=== PATIENT | female | born 1935 | race Caucasian/White ===

== ENCOUNTER 2017-08-24 12:30 | Inpatient (IN) | payer OTHER, MEDICARE ==
[~2017-08-24] VITALS: Ht 162.6 cm; Wt 92.0 kg
[2017-08-24] VITALS (11 sets, daily range): BP systolic 107–129; BP diastolic 53–66; PULSE 99–122; RESP 18–22; TEMP 97.5–100.6; O2SAT 93–96
[~2017-08-24 12:30] MED LIST: ASPI81CH6 CHEW; ATOR20TA15 PO; CEPH-459 PO; CLOB0.055 TOPICAL; CRANBERRY CAPSULE; CYAN100025 SL; DILT120C50 PO; DIPH25CA PO; DOCU50CA5; ESTR42.5V VAGINAL; ESTRIOL; FISH500C; HYDR25TA5 PO; MAPA500T13 PO; MELA5 PO; METO100T PO; NITR50CA27 PO; OMEP20TA93 PO; OSTETAB3 PO; TRIA0.022 TOPICAL; VITA1000 PO; [UNRECOGNIZED DRUG - OTHER]
--- NOTE | 2017-08-24 13:01 | RADRPT ---
EXAM DATE/TIME: 08/24/2017 12:45 [facility] COMPARISON: No previous studies available for comparison. INDICATIONS : Weakness. Cough. MEDICAL HISTORY : Hypertension. Osteoarthritis. SURGICAL HISTORY : Hysterectomy. Tonsillectomy. ENCOUNTER: Initial ACUITY: 1 day PAIN SCORE: 0/10 LOCATION: chest FINDINGS: A single view of the chest demonstrates elevation of the left hemidiaphragm with atelectatic changes in the left base. There is a loop of air-filled bowel subjacent to the same diaphragm without obstruc tion. Lungs are otherwise clear. Heart size is upper limits of normal and well compensated. Mild levoscoliosis of the dorsal spine wit h associated degenerative changes. Mild degenerative changes in both shoulders. Rounded calcific dens ities projecting over the left scapula may represent free bodies are osteochondromata. CONCLUSION: 1. Elevation left hemidiaphragm and minimal atelectatic changes at the left base. Lungs are otherwise clear. 2. Heart size is upper limits of normal and well compensated Herbert Murguia MD on August 24, 2017 at 12:54 Board Certified Radiologist. This report was verified electronically.
[2017-08-24 13:23] LABS: BASOPHIL # 0.3 TH/MM3 (0-0.2); BASOPHIL % 1.6 % (0.0-2.0); EOSINOPHIL % 0.1 % (0.0-4.0); HEMATOCRIT 45.7 % (35.0-46.0); HEMOGLOBIN 15.4 GM/DL (11.6-15.3); LYMPH % 11.9 % (9.0-44.0); MEAN CELL VOLUME 97.1 FL (80.0-100.0); MEAN CORPUSCULAR HEMOGLOBIN 32.8 PG (27.0-34.0); MEAN CORPUSCULAR HGB CONC 33.8 % (32.0-36.0); MEAN PLATELET VOLUME 8.4 FL (7.0-11.0); MONO % 10.6 % (0.0-8.0); MONOCYTE # 1.8 TH/MM3 (0-0.9); NEUT % 75.8 % (16.0-70.0); PLATELET COUNT 258 TH/MM3 (150-450); RED CELL DISTRIBUTION WIDTH 12.7 % (11.6-17.2); WHITE BLOOD COUNT 17.1 TH/MM3 (4.0-11.0)
[2017-08-24 13:28] LABS: CHLORIDE 94 MEQ/L (98-107); SODIUM (NA) 132 MEQ/L (136-145)
[2017-08-24 13:31] LABS: BILIRUBIN, URINE NEG (NEG); BLOOD, URINE MOD (NEG); GLUCOSE,URINE NEG (NEG); KETONE, URINE NEG (NEG); NITRITE,URINE NEG (NEG); PH, URINE 5.5 (5.0-8.5); URINE LEUKOCYTE ESTERASE NEG (NEG)
[2017-08-24 13:31] LABS: ALBUMIN 2.9 GM/DL (3.4-5.0); BICARBONATE 28.2 MEQ/L (21.0-32.0)
[2017-08-24 13:32] LABS: BLOOD UREA NITROGEN 20 MG/DL (7-18); GLUCOSE,RANDOM 189 MG/DL (74-106); INTERNATIONAL NORMALIZED RATIO 1.1 RATIO; MAGNESIUM 1.9 MG/DL (1.5-2.5)
[2017-08-24 13:34] LABS: ALT (GPT) 18 U/L (10-53)
--- NOTE | 2017-08-24 13:34 | RADRPT ---
EXAM DATE/TIME: 08/24/2017 13:18 [facility] COMPARISON: No previous studies available for comparison. INDICATIONS : General weakness. Altered mental status. RADIATION DOSE: 60.64 CTDIvol (mGy) MEDICAL HISTORY : Hypertension. SURGICAL HISTORY : Hysterectomy. ENCOUNTER: Initial ACUITY: 3 days PAIN SCALE: 0/10 LOCATION: cranial TECHNIQUE: Multiple contiguous axial images were obtained of the head. Using automated exposure control and adj ustment of the mA and/or kV according to patient size, radiation dose was kept as low as reasonably a chievable to obtain optimal diagnostic quality images. DICOM format image data is available electro nically for review and comparison. FINDINGS: CEREBRUM: The ventricles are normal for age. No evidence of midline shift, mass lesion, hemorrhage or acute in farction. Scattered areas of diminished attenuation in the deep white matter tracts. No extra-axial fluid collections are seen. POSTERIOR FOSSA: The cerebellum and brainstem are intact. The 4th ventricle is midline. The cerebellopontine angle i s unremarkable. EXTRACRANIAL: The visualized portion of the orbits is intact. SKULL: The calvaria is intact. No evidence of skull fracture. CONCLUSION: 1. Chronic changes with scattered areas of small vessel ischemic dilation in the deep white matter tr acts. 2. Nothing acute Herbert Murguia MD on August 24, 2017 at 13:29 Board Certified Radiologist. This report was verified electronically.
[2017-08-24 13:35] LABS: AST (GOT) 21 U/L (15-37); GLOMERULAR FILTRATION RATE 53 ML/MIN (>89)
[2017-08-24 13:36] LABS: TOTAL BILIRUBIN ADULT 1.5 MG/DL (0.2-1.0); TOTAL PROTEIN 7.9 GM/DL (6.4-8.2)
[2017-08-24 13:38] LABS: ALKALINE PHOSPHATASE 82 U/L (45-117)
[2017-08-24 13:40] LABS: TROPONIN I LESS THAN 0.02 NG/ML (0.02-0.05)
[2017-08-24 13:45] LABS: URINE COLOR YELLOW (YELLW/STRAW)
[2017-08-24 13:46] LABS: RBC, URINE 0-3 /hpf (0-3); SQUAMOUS EPITHELIAL CELL URINE 0-5 /hpf (0-5)
[2017-08-24 13:47] LABS: AMORPHOUS SEDIMENT, URINE FEW
[2017-08-24] MEDS ORDERED: SODIUM CHLOR 0.9% 1000 ML INJ 1,000 ML IV SCH (13:58)
--- NOTE | 2017-08-24 15:55 | PD ---
HPI Chief Complaint: General Weakness Time Seen by Provider: 12:33 Travel History International Travel<30 days: No Contact w/Intl Traveler<30days: No Traveled to known affect area: No History of Present Illness HPI This is an 82-year-old female who presents via EMS for general weakness. 2 days ago, she had a skin cancer removed from the left side of her face. Her son states that since then, she has been diffusely weak. She has not left her recliner. She has had decreased oral intake. No fever, chills, cough, congestion. Patient complains of chronic pain in her feet and knees. She has mildly increased bilateral lower extremity symmetric edema after sitting in her chair for 2 days. No associated chest pain, shortness of breath, nausea, vomiting. Symptoms are moderate in severity. Onset gradual. No known alleviating or aggravating factors. PFSH Past Medical History Arthritis: Yes Cancer: Yes (SKIN) High Cholesterol: Yes Diminished Hearing: No Hypertension: Yes Tetanus Vaccination: > 5 Years Influenza Vaccination: Yes Past Surgical History Hysterectomy: Yes Tonsillectomy: Yes Social History Alcohol Use: No Tobacco Use: No Allergies-Medications (Allergen,Severity, Reaction): Coded Allergies: No Known Allergies (Verified Adverse Reaction, Unknown, 08/24/17) Reported Meds & Prescriptions Reported Meds & Active Scripts Active Keflex (Cephalexin) 250 Mg Cap 250 Mg PO DAILY PRN Reported Osteo Bi-Flex Regular Strength (Glucosamine-Chondroitin) 250-200 Tab 1 Tab PO BID Clobetasol Topical (Clobetasol Propionate) Unknown Strength Cream Unknown Dose TOPICAL BID [Estriol ] Unknown Strength Unknown Dose Triamcinolone Topical Unknown Strength Oint Unknown Dose TOPICAL BID Estrace Vaginal (Estradiol) 0.01% Cream 1 Gm VAGINAL HS Mapap Extra Strength (Acetaminophen) 500 Mg Tab 500 Mg PO DAILY PRN Melatonin 5 Mg Tab 5 Mg PO HS Vitamin D-1000 (Cholecalciferol) 1,000 Unit Tab 1,000 Units PO DAILY Diphenhydramine (Diphenhydramine HCl) 25 Mg Cap 25 Mg PO HS PRN Aspirin Low Dose (Aspirin) 81 Mg Chew 81 Mg CHEW DAILY B-12 (Cyanocobalamin) Unknown Strength Subl Unknown Dose SL DAILY Stool Softener (Docusate Sodium) Unknown Strength Capsule Unknown Dose Fish Oil ([place]-3 Fatty Acids) Unknown Strength Cap Unknown Dose [Cranberry Capsule] Unknown Strength Unknown Dose Hydrochlorothiazide 25 Mg Tab 25 Mg PO DAILY Atorvastatin (Atorvastatin Calcium) 20 Mg Tab 20 Mg PO HS Omeprazole 20 Mg Tab 20 Mg PO DAILY Metoprolol Tartrate 100 Mg Tab 100 Mg PO BID Diltiazem CD 24 HR 120 Mg Caper 180 Mg PO DAILY Review of Systems Except as stated in HPI: all other systems reviewed are Neg Physical Exam Narrative GENERAL: Alert, well nourished, well appearing patient resting on the bed in no acute distress. Vital Signs reviewed SKIN: Focused skin assessment warm/dry. Surgical incision on left side of face and right upper chest with sutures in place. No surrounding erythema or increased warmth or drainage. HEAD: Atraumatic. Normocephalic. EYES: Pupils equal and round. No scleral icterus. No injection or drainage. ENT: No nasal bleeding or discharge. Mucous membranes pink and moist. NECK: Trachea midline. No JVD. Spontaneous, painless full range of motion with no meningismus CARDIOVASCULAR: Regular rate and rhythm. No murmur appreciated. Extremities warm and well perfused with bounding peripheral pulses RESPIRATORY: No accessory muscle use. Clear to auscultation. Breath sounds equal bilaterally. Breathing easily and speaking in full sentences GASTROINTESTINAL: Abdomen soft, non-tender, nondistended. Normal bowel sounds. No rigid, rebound, guarding MUSCULOSKELETAL: No obvious deformities. No clubbing. No cyanosis. Mild symmetric bilateral lower extremity edema. Compartments are soft NEUROLOGICAL: Awake and alert. No obvious cranial nerve deficits. Motor grossly within normal limits. Normal speech. Sensation intact. Data Data Last Documented VS Vital Signs Date Time Temp Pulse Resp B/P (MAP) Pulse Ox O2 Delivery O2 Flow Rate FiO2 08/24/17 16:45 100.6 117 18 126/63 (84) 95 Nasal Cannula 2.00 Orders Orders Electrocardiogram (08/24/17 12:33) Complete Blood Count With Diff (08/24/17 12:33) Comprehensive Metabolic Panel (08/24/17 12:33) Prothrombin Time / Inr (Pt) (08/24/17 12:33) Act Partial Throm Time (Ptt) (08/24/17 12:33) Lactic Acid Sepsis Protocol (08/24/17 12:33) Magnesium (Mg) (08/24/17 12:33) Ckmb (Isoenzyme) Profile (08/24/17 12:33) Troponin I (08/24/17 12:33) Urinalysis - C+S If Indicated (08/24/17 12:33) Influenzae A/B Antigen (08/24/17 12:33) Blood Culture (08/24/17 12:33) Chest, Single Ap (08/24/17 12:33) Ecg Monitoring (08/24/17 12:33) Iv Access Insert/Monitor (08/24/17 12:33) Oximetry (08/24/17 12:33) Ct Brain W/O Iv Contrast(Rout) (08/24/17 12:33) B-Type Natriuretic Peptide (08/24/17 12:33) CKMB (08/24/17 13:00) CKMB% (08/24/17 13:00) Sodium Chlor 0.9% 1000 Ml Inj (Ns 1000 M (08/24/17 13:58) Vancomycin Inj (Vancomycin Inj) (08/24/17 17:00) Piperacil-Tazo 4.5 Gm Premix (Zosyn 4.5 (08/24/17 17:00) Acetaminophen (Tylenol) (08/24/17 17:00) Admit Order (Ed Use Only) (08/24/17 17:19) Labs Laboratory Tests Test 08/24/17 12:50 08/24/17 13:00 08/24/17 16:10 Urine Collection Type CATH Urine Color YELLOW Urine Turbidity CLEAR Urine pH 5.5 Urine Specific [place] 1.020 Urine Protein TRACE mg/dL Urine Glucose (UA) NEG mg/dL Urine Ketones NEG mg/dL Urine Occult Blood MOD Urine Nitrite NEG Urine Bilirubin NEG Urine Leukocyte Esterase NEG Urine RBC 0-3 /hpf Urine Squamous Epithelial Cells 0-5 /hpf Urine Amorphous Sediment FEW Microscopic Urinalysis Comment CATH-CULT NOT IND White Blood Count 17.1 TH/MM3 Red Blood Count 4.70 MIL/MM3 Hemoglobin 15.4 GM/DL Hematocrit 45.7 % Mean Corpuscular Volume 97.1 FL Mean Corpuscular Hemoglobin 32.8 PG Mean Corpuscular Hemoglobin Concent 33.8 % Red Cell Distribution Width 12.7 % Platelet Count 258 TH/MM3 Mean Platelet Volume 8.4 FL Neutrophils (%) (Auto) 75.8 % Lymphocytes (%) (Auto) 11.9 % Monocytes (%) (Auto) 10.6 % Eosinophils (%) (Auto) 0.1 % Basophils (%) (Auto) 1.6 % Neutrophils # (Auto) 13.0 TH/MM3 Lymphocytes # (Auto) 2.0 TH/MM3 Monocytes # (Auto) 1.8 TH/MM3 Eosinophils # (Auto) 0.0 TH/MM3 Basophils # (Auto) 0.3 TH/MM3 CBC Comment AUTO DIFF Differential Comment AUTO DIFF CONFIRMED Platelet Estimate NORMAL Platelet Morphology Comment NORMAL Prothrombin Time 11.0 SEC Prothromb Time International Ratio 1.1 RATIO Activated Partial Thromboplast Time 29.7 SEC Blood Urea Nitrogen 20 MG/DL Creatinine 1.00 MG/DL Random Glucose 189 MG/DL Total Protein 7.9 GM/DL Albumin 2.9 GM/DL Calcium Level 9.0 MG/DL Magnesium Level 1.9 MG/DL Alkaline Phosphatase 82 U/L Aspartate Amino Transf (AST/SGOT) 21 U/L Alanine Aminotransferase (ALT/SGPT) 18 U/L Total Bilirubin 1.5 MG/DL Sodium Level 132 MEQ/L Potassium Level 3.3 MEQ/L Chloride Level 94 MEQ/L Carbon Dioxide Level 28.2 MEQ/L Anion Gap 10 MEQ/L Estimat Glomerular Filtration Rate 53 ML/MIN Lactic Acid Level 3.0 mmol/L 2.0 mmol/L Total Creatine Kinase 383 U/L Creatine Kinase MB 2.0 NG/ML Creatine Kinase MB % 0.5 % Troponin I LESS THAN 0.02 NG/ML B-Type Natriuretic Peptide 101 PG/ML MDM Medical Decision Making Medical Screen Exam Complete: Yes Emergency Medical Condition: Yes Medical Record Reviewed: Yes Interpretation(s) EKG shows sinus tachycardia with a rate of 103. No acute ST elevation Date/Time Source Procedure Growth Status 08/24/17 13:05 Blood Peripheral Aerobic Blood Culture Pending Received 08/24/17 13:05 Blood Peripheral Anaerobic Blood Culture Pending Received 08/24/17 13:00 Blood Peripheral Aerobic Blood Culture Pending Received 08/24/17 13:00 Blood Peripheral Anaerobic Blood Culture Pending Received 08/24/17 12:50 Nasal Washing Influenza Types A,B Antigen ([place]) - Final NEGATIVE FOR FLU A AND B ANTIGEN.... Complete Last [address] 08/24/17 1233 Signed Impressions: Service Date/Time: Thursday, August 24, 2017 13:18 - CONCLUSION: 1. Chronic changes with scattered areas of small vessel ischemic dilation in the deep white matter tracts. 2. Nothing acute Herbert Murguia MD Chest X-Ray 08/24/17 1233 Signed Impressions: Service Date/Time: Thursday, August 24, 2017 12:45 - CONCLUSION: 1. Elevation left hemidiaphragm and minimal atelectatic changes at the left base. Lungs are otherwise clear. 2. Heart size is upper limits of normal and well compensated Herbert Murguia MD Laboratory Tests Test 08/24/17 12:50 08/24/17 13:00 Urine Collection Type CATH Urine Color YELLOW Urine Turbidity CLEAR Urine pH 5.5 Urine Specific [place] 1.020 Urine Protein TRACE mg/dL Urine Glucose (UA) NEG mg/dL Urine Ketones NEG mg/dL Urine Occult Blood MOD Urine Nitrite NEG Urine Bilirubin NEG Urine Leukocyte Esterase NEG Urine RBC 0-3 /hpf Urine Squamous Epithelial Cells 0-5 /hpf Urine Amorphous Sediment FEW Microscopic Urinalysis Comment CATH-CULT NOT IND White Blood Count 17.1 TH/MM3 Red Blood Count 4.70 MIL/MM3 Hemoglobin 15.4 GM/DL Hematocrit 45.7 % Mean Corpuscular Volume 97.1 FL Mean Corpuscular Hemoglobin 32.8 PG Mean Corpuscular Hemoglobin Concent 33.8 % Red Cell Distribution Width 12.7 % Platelet Count 258 TH/MM3 Mean Platelet Volume 8.4 FL Neutrophils (%) (Auto) 75.8 % Lymphocytes (%) (Auto) 11.9 % Monocytes (%) (Auto) 10.6 % Eosinophils (%) (Auto) 0.1 % Basophils (%) (Auto) 1.6 % Neutrophils # (Auto) 13.0 TH/MM3 Lymphocytes # (Auto) 2.0 TH/MM3 Monocytes # (Auto) 1.8 TH/MM3 Eosinophils # (Auto) 0.0 TH/MM3 Basophils # (Auto) 0.3 TH/MM3 CBC Comment AUTO DIFF Differential Comment AUTO DIFF CONFIRMED Platelet Estimate NORMAL Platelet Morphology Comment NORMAL Prothrombin Time 11.0 SEC Prothromb Time International Ratio 1.1 RATIO Activated Partial Thromboplast Time 29.7 SEC Blood Urea Nitrogen 20 MG/DL Creatinine 1.00 MG/DL Random Glucose 189 MG/DL Total Protein 7.9 GM/DL Albumin 2.9 GM/DL Calcium Level 9.0 MG/DL Magnesium Level 1.9 MG/DL Alkaline Phosphatase 82 U/L Aspartate Amino Transf (AST/SGOT) 21 U/L Alanine Aminotransferase (ALT/SGPT) 18 U/L Total Bilirubin 1.5 MG/DL Sodium Level 132 MEQ/L Potassium Level 3.3 MEQ/L Chloride Level 94 MEQ/L Carbon Dioxide Level 28.2 MEQ/L Anion Gap 10 MEQ/L Estimat Glomerular Filtration Rate 53 ML/MIN Lactic Acid Level 3.0 mmol/L Total Creatine Kinase 383 U/L Creatine Kinase MB 2.0 NG/ML Creatine Kinase MB % 0.5 % Troponin I LESS THAN 0.02 NG/ML B-Type Natriuretic Peptide 101 PG/ML Differential Diagnosis Dehydration, deconditioning, UTI, electrolyte abnormality, renal failure, arthritis Narrative Course Patient was placed on a campus monitor. IV access was established. Labs, imaging were performed. The patient was given IV fluids as she appears grossly dehydrated. Despite the IV fluids, she is still too weak to ambulate. Patient developed fever in the emergency department. She does have elevated white blood cell count. No obvious source of infection has been identified in the emergency department. Patient has been given broad-spectrum IV antibiotics. Plan for admission for further evaluation and care. Diagnosis Primary Impression: Dehydration Additional Impression: Sepsis Qualified Codes: A41.9 - Sepsis, unspecified organism Admitting Information Admitting Physician Requests: Admit Neva Carlson MD Aug 24, 2017 15:55
[2017-08-24] MEDS ORDERED: ACETAMINOPHEN 325 MG TAB PO ONE (17:00)
[2017-08-24] MEDS ORDERED: PIPERACIL-TAZO 4.5 GM PREMIX 100 ML IV ONE (17:00)
[2017-08-24] MEDS ORDERED: VANCOMYCIN INJ 1,000 MG in SODIUM CHLOR 0.9% 250 ML INJ 250 ML IV ONE (17:00)
--- NOTE | 2017-08-24 18:43 | HHI.HP ---
HPI Service [facility] Hospitalists Primary Care Physician Olayinka Oreilly MD Admission Diagnosis Sepsis, Dehydration, General Weakness Diagnoses: (1) Systemic inflammatory response syndrome Diagnosis: Principal (2) Generalized weakness Diagnosis: Principal (3) Leukocytosis Diagnosis: Principal (4) Lactic acidosis Diagnosis: Principal (5) Hyponatremia Diagnosis: Principal (6) Hypokalemia Diagnosis: Principal Chief Complaint: Profound weakness Travel History International Travel<30 Days: No Contact w/Intl Traveler <30 Da: No Traveled to Known Affected Are: No Sepsis Criteria SIRS Criteria (2 or more): Heart rate over 90, WBC > 72285, < 4000 or > 10% bands Severe Sepsis (+one): Lactate >2 History of Present Illness 82-year-old female with known history of hypertension, hyperlipidemia , skin cancer who presented to hospital because of profound weakness. Patient indicates that she has been undergoing surgical excision from skin cancer. She had skin cancer removed from her right clavicle area 07/15/17 and then she proceeded to have significant cancer removed from her left lateral restoration area on 07/22/17. Since the last excision the patient went home and has had significant weakness, debility, lower extremity pain, decreased appetite. Subsequently patient had inability to ambulate or walk. He can't she was so weak and cannot walk she came to emergency department for evaluation. Patient had workup done in found to have signs of dehydration, workup was done to evaluate for any signs of infection, however no source has been identified thus far. Patient did meet criteria for systemic inflammatory response syndrome and is recommended by ER physician that the patient be admitted for further evaluation and management. Upon evaluating patient she does appear to be very weak. She denies any fever, chills, cough, congestion, chest pain, shortness of breath, difficulty breathing, abdominal pain, nausea, vomiting, diaphoresis. Review of Systems Constitutional: COMPLAINS OF: Fatigue Cardiovascular: COMPLAINS OF: Lower Extremity Edema Neurologic: COMPLAINS OF: Abnormal gait, Poor Balance Except as stated in HPI: all other systems reviewed are Neg Past Family Social History Past Medical History Hypertension Hyperlipidemia History skin cancer Arthritis Past Surgical History Hysterectomy Umbilical hernia repair Skin cancer removal Reported Medications Reported Meds & Active Scripts Active Keflex (Cephalexin) 250 Mg Cap 250 Mg PO DAILY PRN Reported Osteo Bi-Flex Regular Strength (Glucosamine-Chondroitin) 250-200 Tab 1 Tab PO BID Clobetasol Topical (Clobetasol Propionate) Unknown Strength Cream Unknown Dose TOPICAL BID [Estriol ] Unknown Strength Unknown Dose Triamcinolone Topical Unknown Strength Oint Unknown Dose TOPICAL BID Estrace Vaginal (Estradiol) 0.01% Cream 1 Gm VAGINAL HS Mapap Extra Strength (Acetaminophen) 500 Mg Tab 500 Mg PO DAILY PRN Melatonin 5 Mg Tab 5 Mg PO HS Vitamin D-1000 (Cholecalciferol) 1,000 Unit Tab 1,000 Units PO DAILY Diphenhydramine (Diphenhydramine HCl) 25 Mg Cap 25 Mg PO HS PRN Aspirin Low Dose (Aspirin) 81 Mg Chew 81 Mg CHEW DAILY B-12 (Cyanocobalamin) Unknown Strength Subl Unknown Dose SL DAILY Stool Softener (Docusate Sodium) Unknown Strength Capsule Unknown Dose Fish Oil ([place]-3 Fatty Acids) Unknown Strength Cap Unknown Dose [Cranberry Capsule] Unknown Strength Unknown Dose Hydrochlorothiazide 25 Mg Tab 25 Mg PO DAILY Atorvastatin (Atorvastatin Calcium) 20 Mg Tab 20 Mg PO HS Omeprazole 20 Mg Tab 20 Mg PO DAILY Metoprolol Tartrate 100 Mg Tab 100 Mg PO BID Diltiazem CD 24 HR 120 Mg Caper 180 Mg PO DAILY Allergies: Coded Allergies: No Known Allergies (Verified Adverse Reaction, Unknown, 08/24/17) Family History Reviewed is significant for father at age 51 from myocardial infarction , mother at 88 with Parkinson's Social History Patient does live at home with her son, she denies any tobacco, alcohol or illicit drugs Physical Exam Vital Signs Vital Signs Date Time Temp Pulse Resp B/P (MAP) Pulse Ox O2 Delivery O2 Flow Rate FiO2 08/24/17 18:14 120 20 114/60 (78) 94 Nasal Cannula 2.00 08/24/17 18:02 122 08/24/17 16:45 100.6 117 18 126/63 (84) 95 Nasal Cannula 2.00 08/24/17 16:10 101 18 119/60 (79) 94 Nasal Cannula 2.00 08/24/17 15:05 Nasal Cannula 2.00 08/24/17 15:05 99 18 129/66 (87) 96 Nasal Cannula 2.00 08/24/17 13:43 98.5 99 20 124/55 (78) 96 Nasal Cannula 2.00 08/24/17 13:13 98.2 103 22 109/62 (78) 93 08/24/17 12:50 Room Air Physical Exam GENERAL: Well-developed, well-nourished, in no acute distress. alert and orientated HEENT: Head is normocephalic without any lesions or masses noted. Facial features are symmetric. Eyes: Pupils equal round reactive to light. Extraocular muscles are intact. Conjunctivae were clear. Oropharyngeal: Pharynx without any erythema edema. Tongue is midline without deviation. Buccal mucosa is moist without any masses or lesions NECK: Supple without any masses. Trachea midline no deviation. No JVD, no bruits are appreciated CARDIAC: Regular rhythm, regular rate. S1/S2 are heard. No murmurs gallops or rubs. LUNGS: Clear to auscultation bilaterally. No wheeze, rhonchi or rales. No use of accessory muscles on inspiration or expiration. ABDOMEN: Soft, nontender. Nondistended. Bowel sounds heard in all 4 quadrants. No organomegaly or masses. Negative rebound, negative guarding EXTREMITIES: 2+ nonpitting edema noted bilateral lower extremities, pulses are equal bilaterally. No cyanosis or clubbing NEUROLOGY: Mood and affect appear appropriate. Cranial nerves II through XII grossly intact. Muscle strength 5/5 in upper and lower extremities bilaterally. Deep tendon reflexes are 2+ in upper and lower extremities bilaterally. SKIN: Patient does have healing incision with sutures over the right upper chest over the clavicle without any signs of infection. Patient does have incision on the left lateral restoration Laboratory Laboratory Tests Test 08/24/17 12:50 08/24/17 13:00 08/24/17 16:10 Urine Collection Type CATH Urine Color YELLOW Urine Turbidity CLEAR Urine pH 5.5 Urine Specific Lynd 1.020 Urine Protein TRACE Urine Glucose (UA) NEG Urine Ketones NEG Urine Occult Blood MOD Urine Nitrite NEG Urine Bilirubin NEG Urine Leukocyte Esterase NEG Urine RBC 0-3 Urine Squamous Epithelial Cells 0-5 Urine Amorphous Sediment FEW Microscopic Urinalysis Comment CATH-CULT NOT IND White Blood Count 17.1 Red Blood Count 4.70 Hemoglobin 15.4 Hematocrit 45.7 Mean Corpuscular Volume 97.1 Mean Corpuscular Hemoglobin 32.8 Mean Corpuscular Hemoglobin Concent 33.8 Red Cell Distribution Width 12.7 Platelet Count 258 Mean Platelet Volume 8.4 Neutrophils (%) (Auto) 75.8 Lymphocytes (%) (Auto) 11.9 Monocytes (%) (Auto) 10.6 Eosinophils (%) (Auto) 0.1 Basophils (%) (Auto) 1.6 Neutrophils # (Auto) 13.0 Lymphocytes # (Auto) 2.0 Monocytes # (Auto) 1.8 Eosinophils # (Auto) 0.0 Basophils # (Auto) 0.3 CBC Comment AUTO DIFF Differential Comment AUTO DIFF CONFIRMED Platelet Estimate NORMAL Platelet Morphology Comment NORMAL Prothrombin Time 11.0 Prothromb Time International Ratio 1.1 Activated Partial Thromboplast Time 29.7 Blood Urea Nitrogen 20 Creatinine 1.00 Random Glucose 189 Total Protein 7.9 Albumin 2.9 Calcium Level 9.0 Magnesium Level 1.9 Alkaline Phosphatase 82 Aspartate Amino Transf (AST/SGOT) 21 Alanine Aminotransferase (ALT/SGPT) 18 Total Bilirubin 1.5 Sodium Level 132 Potassium Level 3.3 Chloride Level 94 Carbon Dioxide Level 28.2 Anion Gap 10 Estimat Glomerular Filtration Rate 53 Lactic Acid Level 3.0 2.0 Total Creatine Kinase 383 Creatine Kinase MB 2.0 Creatine Kinase MB % 0.5 Troponin I LESS THAN 0.02 B-Type Natriuretic Peptide 101 Date/Time Source Procedure Growth Status 08/24/17 13:05 Blood Peripheral Aerobic Blood Culture Pending Received 08/24/17 13:05 Blood Peripheral Anaerobic Blood Culture Pending Received 08/24/17 12:50 Nasal Washing Influenza Types A,B Antigen (Y[place]SELIN) - Final NEGATIVE FOR FLU A AND B ANTIGEN.... Complete Result Diagram: 08/24/17 1300 08/24/17 1300 Imaging Last Impressions Head CT 08/24/17 1233 Signed Impressions: Service Date/Time: Thursday, August 24, 2017 13:18 - CONCLUSION: 1. Chronic changes with scattered areas of small vessel ischemic dilation in the deep white matter tracts. 2. Nothing acute Herbert Murguia MD Chest X-Ray 08/24/17 1233 Signed Impressions: Service Date/Time: Thursday, August 24, 2017 12:45 - CONCLUSION: 1. Elevation left hemidiaphragm and minimal atelectatic changes at the left base. Lungs are otherwise clear. 2. Heart size is upper limits of normal and well compensated Herbert Murguia MD Septic Shock Reassessment Septic shock perfusion: reassessment completed Caprini VTE Risk Assessment Caprini VTE Risk Assessment: Mod/High Risk (score >= 2) Caprini Risk Assessment Model Point Value = 1 Point Value = 2 Point Value = 3 Point Value = 5 Age 41-60 Minor surgery BMI > 25 kg/m2 Swollen legs Varicose veins or History of unexplained or recurrent spontaneous Oral contraceptives or hormone replacement Sepsis (< 1 month) Serious lung disease, including pneumonia (< 1 month) Abnormal pulmonary function Acute myocardial infarction Congestive heart failure (< 1 month) History of inflammatory bowel disease Medical patient at bed rest Age 61-74 Arthroscopic surgery Major open surgery (> 45 min) Laparoscopic surgery (> 45 min) Malignancy Confined to bed (> 72 hours) Immobilizing plaster cast Central venous access Age >= 75 History of VTE Family history of VTE Factor V Leiden Prothrombin [id number] Lupus anticoagulant Anticardiolipin antibodies Elevated serum homocysteine Heparin-induced thrombocytopenia Other congenital or acquired thrombophilia Stroke (< 1 month) Elective arthroplasty Hip, pelvis, or leg fracture Acute spinal cord injury (< 1 month) Prophylaxis Regimen Total Risk Factor Score Risk Level Prophylaxis Regimen 0-1 Low Early ambulation 2 Moderate Order ONE of the following: *Sequential Compression Device (SCD) *Heparin 5000 units SQ BID 3-4 Higher Order ONE of the following medications: *Heparin 5000 units SQ TID *Enoxaparin/Lovenox 40 mg SQ daily (WT < 150 kg, CrCl > 30 mL/min) *Enoxaparin/Lovenox 30 mg SQ daily (WT < 150 kg, CrCl > 10-29 mL/min) *Enoxaparin/Lovenox 30 mg SQ BID (WT < 150 kg, CrCl > 30 mL/min) AND/OR *Sequential Compression Device (SCD) 5 or more Highest Order ONE of the following medications: *Heparin 5000 units SQ TID (Preferred with Epidurals) *Enoxaparin/Lovenox 40 mg SQ daily (WT < 150 kg, CrCl > 30 mL/min) *Enoxaparin/Lovenox 30 mg SQ daily (WT < 150 kg, CrCl > 10-29 mL/min) *Enoxaparin/Lovenox 30 mg SQ BID (WT < 150 kg, CrCl > 30 mL/min) AND *Sequential Compression Device (SCD) Assessment and Plan Assessment and Plan Systemic inflammatory response syndrome Patient was found to have criteria to include leukocytosis, tachycardia, lactic acidosis Could be secondary to debility, dehydration, possible underlying infection that has not been identified Patient continued on IV fluids Lactic acidosis has already returned to normal. Urinalysis was clear, influenza testing was negative Blood cultures have been drawn and pending Chest x-rays without any signs of infiltrate or pneumonia Patient was started on empirical antibiotics include vancomycin and Zosyn in the emergency department We'll check serial cardiac enzymes, serial EKGs rule out any underlying cardiac event Check echocardiogram consult physical therapy for evaluation consult case management for possible home with home health care versus rehabilitation facility Leukocytosis Could be reactive and or concentration Monitor CBC Azotemia Likely secondary to dehydration Continue IV fluids monitor renal function Electrolyte abnormalities Hyponatremia, hypokalemia Continue monitor and replete as needed Hyperglycemia Check hemoglobin A1c Start Accu-Cheks with sliding scale insulin Hypertension, hyperlipidemia Continue home medication Hold parameters for blood pressure medication DVT prevention Subcutaneous heparin Physician Certification 2 Midnight Certification Type: Admission for Inpatient Services Order for Inpatient Services The services are ordered in accordance with Medicare regulations or non- Medicare payer requirements, as applicable. In the case of services not specified as inpatient-only, they are appropriately provided as inpatient services in accordance with the 2-midnight benchmark. Estimated LOS (days): 3 days is the estimated time the patient will need to remain in the hospital, assuming treatment plan goals are met and no additional complications. Post-Hospital Plan: Not yet determined Aram Doshi Aug 24, 2017 18:43
[2017-08-24] MEDS ORDERED: BISACODYL 10 MG SUPP RECTAL PRN (18:45)
[2017-08-24] MEDS ORDERED: TEMAZEPAM 15 MG CAP PO PRN (18:45)
[2017-08-24] MEDS ORDERED: LACTULOSE SYRUP 20 GM/30 ML CUP PO PRN (18:45)
[2017-08-24] MEDS ORDERED: SODIUM CHLORIDE 0.9% FLUSH 10 ML FLUSH IV FLUSH PRN (18:45)
[2017-08-24] MEDS ORDERED: ONDANSETRON HCL 4 MG/2 ML VIAL IVP PRN (18:45)
[2017-08-24] MEDS ORDERED: SENNOSIDES 8.6 MG TAB PO PRN (18:45)
[2017-08-24] MEDS ORDERED: NALOXONE HCL 0.4 MG/ML AMP IV PUSH PRN (18:45)
[2017-08-24] MEDS ORDERED: ACETAMINOPHEN 325 MG TAB PO PRN (18:45)
[2017-08-24] MEDS ORDERED: MAGNESIUM HYDROXIDE SUSP 30 ML CUP PO PRN (18:45)
[2017-08-24] MEDS ORDERED: DEXTROSE 50% IN WATER 50 ML VIAL(D50) IV PUSH PRN (19:00)
[2017-08-24] MEDS ORDERED: GLUCAGON 1 MG/ML VIAL OTHER PRN (19:00)
--- NOTE | 2017-08-24 19:37 | EKG ---
Date Performed: 08/24/2017 Time Performed: 12:54:13 PTAGE: 82 years EKG: SINUS TACHYCARDIA MINIMAL ST DEPRESSION ABNORMAL RHYTHM ECG NO PREVIOUS TRACING DOCTOR: Albert Garcia Interpretating Date/Time 08/24/2017 19:36:27
[2017-08-24 20:06] LABS: TROPONIN I LESS THAN 0.02 NG/ML (0.02-0.05)
[2017-08-24] MEDS: INSULIN ASPART SUPPLEMENTAL SCALE SQ SCH (21:00)
[2017-08-24] MEDS: SODIUM CHLORIDE 0.9% FLUSH 10 ML FLUSH IV FLUSH SCH (21:13)
[2017-08-24] MEDS: HEPARIN SODIUM - SQ 10,000 UNITS/ML VIAL SQ SCH (21:13)
[2017-08-24] MEDS: METOPROLOL TARTRATE 100 MG TAB PO SCH (21:14)
[2017-08-24] MEDS: SODIUM CHLOR 0.9% 1000 ML INJ 1,000 ML IV SCH (21:14)
[2017-08-24] MEDS: DOCUSATE SODIUM 50 MG/SENNA 8.6 MG TAB PO SCH (21:14)
[2017-08-24] MEDS: ATORVASTATIN 20 MG TAB PO SCH (21:14)
[2017-08-24 22:28] LABS: HEMOGLOBIN A1C 6.3 % (4.3-6.0)
[2017-08-24] MEDS: MELATONIN 5 MG TAB PO SCH (22:41)
[2017-08-25] VITALS (8 sets, daily range): BP systolic 99–130; BP diastolic 63–77; PULSE 96–122; RESP 18–20; TEMP 96.7–99.5; O2SAT 94–97
[2017-08-25 02:01] LABS: TROPONIN I LESS THAN 0.02 NG/ML (0.02-0.05)
[2017-08-25] MEDS: SODIUM CHLOR 0.9% 1000 ML INJ 1,000 ML IV SCH (06:08)
[2017-08-25 06:36] LABS: AUTOMATED NEUTROPHIL # 10.5 TH/MM3 (1.8-7.7); BASOPHIL % 0.2 % (0.0-2.0); EOSINOPHIL % 0.1 % (0.0-4.0); HEMATOCRIT 38.7 % (35.0-46.0); HEMOGLOBIN 13.1 GM/DL (11.6-15.3); LYMPH % 13.1 % (9.0-44.0); LYMPHOCYTE # 1.8 TH/MM3 (1.0-4.8); MEAN CELL VOLUME 96.4 FL (80.0-100.0); MEAN CORPUSCULAR HEMOGLOBIN 32.6 PG (27.0-34.0); MEAN CORPUSCULAR HGB CONC 33.8 % (32.0-36.0); MEAN PLATELET VOLUME 8.6 FL (7.0-11.0); MONO % 10.7 % (0.0-8.0); MONOCYTE # 1.5 TH/MM3 (0-0.9); NEUT % 75.9 % (16.0-70.0); PLATELET COUNT 226 TH/MM3 (150-450); RED BLOOD COUNT 4.01 MIL/MM3 (4.00-5.30); RED CELL DISTRIBUTION WIDTH 12.4 % (11.6-17.2); WHITE BLOOD COUNT 13.8 TH/MM3 (4.0-11.0)
[2017-08-25 07:13] LABS: ALBUMIN 2.1 GM/DL (3.4-5.0); ALKALINE PHOSPHATASE 66 U/L (45-117); ALT (GPT) 14 U/L (10-53); AST (GOT) 22 U/L (15-37); BLOOD UREA NITROGEN 17 MG/DL (7-18); CALCIUM 8.2 MG/DL (8.5-10.1); CHLORIDE 102 MEQ/L (98-107); CREATININE 0.66 MG/DL (0.50-1.00); GLOMERULAR FILTRATION RATE 86 ML/MIN (>89); GLUCOSE,RANDOM 147 MG/DL (74-106); SODIUM (NA) 138 MEQ/L (136-145); TOTAL BILIRUBIN ADULT 1.3 MG/DL (0.2-1.0); TOTAL PROTEIN 6.5 GM/DL (6.4-8.2)
[2017-08-25] MEDS ORDERED: POTASSIUM CHLORIDE 10 MEQ CONTROLLED RELEASE TAB PO ONE (07:30)
[2017-08-25] MEDS: DILTIAZEM-CD 180 MG CAP ER PO SCH (07:45)
[2017-08-25] MEDS: PANTOPRAZOLE SOD 20 MG DELAYED RELEASE TAB PO SCH (07:45)
[2017-08-25] MEDS: METOPROLOL TARTRATE 100 MG TAB PO SCH ×2 (07:45→20:55)
[2017-08-25] MEDS: DOCUSATE SODIUM 50 MG/SENNA 8.6 MG TAB PO SCH ×2 (07:45→20:55)
[2017-08-25] MEDS: SODIUM CHLORIDE 0.9% FLUSH 10 ML FLUSH IV FLUSH SCH ×2 (07:46→20:54)
[2017-08-25] MEDS: HEPARIN SODIUM - SQ 10,000 UNITS/ML VIAL SQ SCH ×2 (07:47→20:54)
[2017-08-25] MEDS: INSULIN ASPART SUPPLEMENTAL SCALE SQ SCH ×4 (07:53→22:29)
--- NOTE | 2017-08-25 09:13 | HHI.PR ---
Subjective Remarks Patient seen and examined today for follow-up on profound weakness. Patient is lying in bed comfortable. Denies any new complaints. Still stating that she is having lower extremity pain, she is very weak. She is asking if she had diabetes now. I discussed with her extensively the laboratory studies, the implications of the positive results and that she is diabetic. I notified her that she will be receiving diabetic education, dietary education. I discussed with her that she will likely need to go to a rehabilitation facility for continued management. She is in agreement Objective Vitals Vital Signs Date Time Temp Pulse Resp B/P (MAP) Pulse Ox O2 Delivery O2 Flow Rate FiO2 08/25/17 04:00 99.2 122 20 122/68 (86) 95 08/25/17 00:00 97.6 105 20 118/63 (81) 97 08/24/17 20:34 112 08/24/17 20:20 97.5 112 20 114/65 (81) 96 08/24/17 20:19 114 18 107/55 (72) 93 Nasal Cannula 2.00 08/24/17 19:00 113 18 118/53 (74) 95 Nasal Cannula 2.00 08/24/17 19:00 113 18 95 Nasal Cannula 2.00 08/24/17 19:00 94 Nasal Cannula 1.50 08/24/17 18:14 120 20 114/60 (78) 94 Nasal Cannula 2.00 08/24/17 18:02 122 08/24/17 16:45 100.6 117 18 126/63 (84) 95 Nasal Cannula 2.00 08/24/17 16:10 101 18 119/60 (79) 94 Nasal Cannula 2.00 08/24/17 15:05 Nasal Cannula 2.00 08/24/17 15:05 99 18 129/66 (87) 96 Nasal Cannula 2.00 08/24/17 13:43 98.5 99 20 124/55 (78) 96 Nasal Cannula 2.00 08/24/17 13:13 98.2 103 22 109/62 (78) 93 08/24/17 12:50 Room Air I/O 08/24/17 08/24/17 08/24/17 08/25/17 08/25/17 08/25/17 07:00 15:00 23:00 07:00 15:00 23:00 Intake Total 1350 ml 1060 ml Balance 1350 ml 1060 ml Intake Oral 200 ml IV Total 1350 ml 860 ml # Voids 2 # Bowel Movements 0 Result Diagram: 08/25/1753908/25/17539 Objective Remarks GENERAL: Well-developed, well-nourished, in no acute distress. alert and orientated HEENT: Head is normocephalic without any lesions or masses noted. Facial features are symmetric. Eyes: Extraocular muscles are intact. Conjunctivae were clear. NECK: Supple without any masses. Trachea midline no deviation. No JVD, CARDIAC: Regular rhythm, regular rate. S1/S2 are heard. No murmurs gallops or rubs. LUNGS: Clear to auscultation bilaterally. No wheeze, rhonchi or rales. No use of accessory muscles on inspiration or expiration. ABDOMEN: Soft, nontender. Nondistended. Bowel sounds heard in all 4 quadrants. No organomegaly or masses. Negative rebound, negative guarding EXTREMITIES: 2+ nonpitting edema noted bilateral lower extremities, pulses are equal bilaterally. No cyanosis or clubbing NEUROLOGY: Mood and affect appear appropriate. Cranial nerves II through XII grossly intact. Moving all extremities, speech clear SKIN: Patient does have healing incision with sutures over the right upper chest over the clavicle without any signs of infection. Patient does have incision on the left lateral pentecostalism Urinary Catheter: No Vascular Central Line Catheter: No A/P Assessment and Plan Systemic inflammatory response syndrome Patient still with criteria to include leukocytosis, tachycardia, mild rhabdomyolysis Could be secondary to debility, dehydration, possible underlying infection that has not been identified Patient continued on IV fluids Lactic acidosis has already returned to normal. Urinalysis was clear, influenza testing was negative Blood cultures are negative for 1 day Chest x-rays without any signs of infiltrate or pneumonia Patient was started on empirical antibiotics include vancomycin and Zosyn in the emergency department Serial cardiac enzymes, serial EKGs were performed and ruled out any acute coronary event Echocardiogram is pending consult physical therapy for evaluation, who indicates that the patient will require PT at rehabilitation consult case management for placement to rehabilitation facility Rhabdomyolysis, mild Continue IV fluid Continue monitor CPK Leukocytosis, improving Could be reactive and or concentration Monitor CBC Azotemia, improved Likely secondary to dehydration Continue IV fluids monitor renal function Electrolyte abnormalities Hyponatremia, hypokalemia Continue monitor and replete as needed Diabetes Hemoglobin A1c 6.3, with multiple readings of blood glucose greater than 160 Continue Accu-Cheks with sliding scale insulin Consulted nurse educator, dietitian Hypertension, hyperlipidemia Continue home medication Hold parameters for blood pressure medication DVT prevention Subcutaneous heparin Discharge Planning Case management consulted for rehabilitation placement. Awaiting acceptance at [facility] Aram Doshi Aug 25, 2017 09:12
--- NOTE | 2017-08-25 14:29 | ECHRPT ---
Indication: HEART FAILURE CONCLUSIONS Technically very limited study. Normal left ventricular size. Wall thickness is normal. The left ventricular systolic function is low normal with an estimated ejection fraction in the rang e of 50- 55%. BP: / HR: Rhythm: MEASUREMENTS (Male / Female) Normal Values Technical Quality:Technically difficult study 2D ECHO LV Diastolic Diameter PLAX 4.5 cm 4.2 - 5.9 / 3.9 - 5.3 cm LV Systolic Diameter PLAX 3.5 cm IVS Diastolic Thickness 0.9 cm 0.6 - 1.0 / 0.6 - 0.9 cm LVPW Diastolic Thickness 0.7 cm 0.6 - 1.0 / 0.6 - 0.9 cm LV Relative Wall Thickness 0.4 LA Systolic Diameter LX 3.1 cm 3.0 - 4.0 / 2.7 - 3.8 cm DOPPLER Mitral E Point Velocity 89.3 cm/s TR Peak Velocity 141.0 cm/s TR Peak Gradient 8.0 mmHg FINDINGS LEFT VENTRICLE Normal left ventricular size. Wall thickness is normal. The left ventricular systolic function is low normal with an estimated ejection fraction in the rang e of 50- 55%. RIGHT VENTRICLE Normal right ventricular size and systolic function. LEFT ATRIUM The left atrial size is normal. RIGHT ATRIUM The right atrial size is normal. ATRIAL SEPTUM Normal atrial septal thickness without atrial level shunting by limited color doppler interrogation. AORTA The aortic root and proximal ascending aorta are normal in size on limited imaging. MITRAL VALVE Structurally normal mitral valve. No mitral valve stenosis or regurgitation. AORTIC VALVE Trileaflet aortic valve. No aortic valve stenosis or regurgitation. TRICUSPID VALVE Structurally normal tricuspid valve. No tricuspid valve stenosis or regurgitation. PULMONARY VALVE The pulmonary valve is not well visualized. VESSELS The inferior vena cava is normal in size. PERICARDIUM No pericardial effusion. Angelito Marroquin MD, FACC, FSCAI (Electronically Signed) Final Date:25 August 2017 14:29
--- NOTE | 2017-08-25 14:45 | EKG ---
Date Performed: 08/24/2017 Time Performed: 19:03:34 PTAGE: 82 years EKG: SINUS TACHYCARDIA WITH FREQUENT VENTRICULAR PREMATURE COMPLEXES WITH FREQUENT SUPRAVENTRICU LAR PREMATURE COMPLEXES MINIMAL ST DEPRESSION ABNORMAL RHYTHM ECG PREVIOUS TRACING : 08/24/2017 12.54 Ventricular ectopy is new since prior tracing, but otherwis e largely unchanged from the prior tracing. DOCTOR: Logan Tripathi Interpretating Date/Time 08/25/2017 14:37:25
--- NOTE | 2017-08-25 14:54 | EKG ---
Date Performed: 08/25/2017 Time Performed: 00:17:21 PTAGE: 82 years EKG: SINUS TACHYCARDIA NONSPECIFIC T-WAVE ABNORMALITY ABNORMAL RHYTHM ECG PREVIOUS TRACING : 08/24/2017 19.03 Since the prior tracing, there has been no significant myrick DOCTOR: Logan Tripathi Interpretating Date/Time 08/25/2017 14:47:45
[2017-08-25] MEDS ORDERED: NS + KCL 20 MEQ INJ 1,000 ML IV SCH (17:00)
[2017-08-25] MEDS ORDERED: POTASSIUM CHLORIDE INJ 20 MEQ in SODIUM CHLOR 0.9% 1000 ML INJ 1,000 ML IV SCH (18:00)
[2017-08-25] MEDS: ATORVASTATIN 20 MG TAB PO SCH (20:56)
[2017-08-25] MEDS: MELATONIN 5 MG TAB PO SCH (20:56)
[2017-08-26] VITALS: BP 118/63; PULSE 102; RESP 18; TEMP 98.5; O2SAT 97
[2017-08-26 04:00] VITALS: BP 122/68; PULSE 100; RESP 18; TEMP 98.3; O2SAT 95
[2017-08-26 06:33] LABS: AUTOMATED NEUTROPHIL # 8.7 TH/MM3 (1.8-7.7); BASOPHIL # 0.1 TH/MM3 (0-0.2); BASOPHIL % 0.5 % (0.0-2.0); EOSINOPHIL # 0.1 TH/MM3 (0-0.4); EOSINOPHIL % 0.6 % (0.0-4.0); HEMATOCRIT 36.3 % (35.0-46.0); HEMOGLOBIN 12.2 GM/DL (11.6-15.3); LYMPH % 16.2 % (9.0-44.0); LYMPHOCYTE # 1.9 TH/MM3 (1.0-4.8); MEAN CELL VOLUME 96.9 FL (80.0-100.0); MEAN CORPUSCULAR HEMOGLOBIN 32.6 PG (27.0-34.0); MEAN CORPUSCULAR HGB CONC 33.6 % (32.0-36.0); MEAN PLATELET VOLUME 8.6 FL (7.0-11.0); MONO % 9.9 % (0.0-8.0); MONOCYTE # 1.2 TH/MM3 (0-0.9); NEUT % 72.8 % (16.0-70.0); PLATELET COUNT 238 TH/MM3 (150-450); RED BLOOD COUNT 3.75 MIL/MM3 (4.00-5.30); RED CELL DISTRIBUTION WIDTH 12.3 % (11.6-17.2)
[2017-08-26 06:37] LABS: CHLORIDE 106 MEQ/L (98-107); SODIUM (NA) 139 MEQ/L (136-145)
[2017-08-26 06:40] LABS: CALCIUM 8.5 MG/DL (8.5-10.1)
[2017-08-26 06:41] LABS: BICARBONATE 26.9 MEQ/L (21.0-32.0); BLOOD UREA NITROGEN 19 MG/DL (7-18); GLUCOSE,RANDOM 144 MG/DL (74-106); MAGNESIUM 1.9 MG/DL (1.5-2.5)
[2017-08-26 06:44] LABS: CREATININE 0.58 MG/DL (0.50-1.00); GLOMERULAR FILTRATION RATE 99 ML/MIN (>89)
[2017-08-26] MEDS: INSULIN ASPART SUPPLEMENTAL SCALE SQ SCH ×2 (07:51→12:40)
[2017-08-26 08:00] VITALS: BP 129/75; PULSE 100; RESP 24; TEMP 96.6; O2SAT 96
[2017-08-26] MEDS: DILTIAZEM-CD 180 MG CAP ER PO SCH (08:00)
[2017-08-26] MEDS: HEPARIN SODIUM - SQ 10,000 UNITS/ML VIAL SQ SCH (08:00)
[2017-08-26] MEDS: DOCUSATE SODIUM 50 MG/SENNA 8.6 MG TAB PO SCH (08:00)
[2017-08-26] MEDS: METOPROLOL TARTRATE 100 MG TAB PO SCH (08:00)
[2017-08-26] MEDS: PANTOPRAZOLE SOD 20 MG DELAYED RELEASE TAB PO SCH (08:00)
[2017-08-26] MEDS: SODIUM CHLORIDE 0.9% FLUSH 10 ML FLUSH IV FLUSH SCH (08:01)
--- NOTE | 2017-08-26 11:05 | HHI.DCPOC ---
Discharge Care Plan Diagnosis: (1) Systemic inflammatory response syndrome (2) Leukocytosis (3) Hyponatremia (4) Generalized weakness Goals to Promote Your Health * To prevent worsening of your condition and complications * To maintain your health at the optimal level Directions to Meet Your Goals Take your medications as prescribed Follow your dietary instruction Follow activity as directed Keep your appointments as scheduled Take your immunizations and boosters as scheduled If your symptoms worsen call your PCP, if no PCP go to Urgent Care Center or Emergency Room Smoking is Dangerous to Your Health. Avoid second hand smoke Call the 24-hour hour crisis hotline for domestic abuse at Aram Doshi Aug 26, 2017 11:05
--- NOTE | 2017-08-26 11:08 | HHI.PR ---
Subjective Remarks Patient seen and examined today for follow-up on profound weakness, rhabdomyolysis, dehydration. . Discussed patient's condition with patient, son at bedside. Notify them that laboratory results have returned to normal at this time.. She is actually looking very well. She is looking forward to going to rehabilitation facility so she can get stronger. Objective Vitals Vital Signs Date Time Temp Pulse Resp B/P (MAP) Pulse Ox O2 Delivery O2 Flow Rate FiO2 08/26/17 08:00 96.6 100 24 129/75 (93) 96 08/26/17 04:00 98.3 100 18 122/68 (86) 95 08/26/17 00:00 98.5 102 18 118/63 (81) 97 08/25/17 20:00 110 08/25/17 20:00 98.9 112 19 124/63 (83) 96 08/25/17 19:59 96 Nasal Cannula 2.00 08/25/17 16:00 98.7 96 19 130/70 (90) 95 08/25/17 12:00 96.7 98 18 99/77 (84) 97 I/O 08/25/17 08/25/17 08/25/17 08/26/17 08/26/17 08/26/17 07:00 15:00 23:00 07:00 15:00 23:00 Intake Total 1060 ml 2023 ml 378 ml Output Total 350 ml Balance 1060 ml 2023 ml 28 ml Intake Oral 200 ml IV Total 860 ml 2023 ml 378 ml Output Urine Total 350 ml # Voids 2 # Bowel Movements 0 Result Diagram: 08/26/17 0543 08/26/17 0543 Objective Remarks GENERAL: Well-developed, well-nourished, in no acute distress. alert and orientated HEENT: Head is normocephalic without any lesions or masses noted. Facial features are symmetric. Eyes: Extraocular muscles are intact. Conjunctivae were clear. NECK: Supple without any masses. Trachea midline no deviation. No JVD, CARDIAC: Regular rhythm, regular rate. S1/S2 are heard. No murmurs gallops or rubs. LUNGS: Clear to auscultation bilaterally. No wheeze, rhonchi or rales. No use of accessory muscles on inspiration or expiration. ABDOMEN: Soft, nontender. Nondistended. Bowel sounds heard in all 4 quadrants. No organomegaly or masses. Negative rebound, negative guarding EXTREMITIES: 2+ nonpitting edema noted bilateral lower extremities, pulses are equal bilaterally. No cyanosis or clubbing NEUROLOGY: Mood and affect appear appropriate. Cranial nerves II through XII grossly intact. Moving all extremities, speech clear SKIN: Patient does have healing incision with sutures over the right upper chest over the clavicle without any signs of infection. Patient does have incision on the left lateral mormonism Urinary Catheter: No Vascular Central Line Catheter: No A/P Assessment and Plan Systemic inflammatory response syndrome, resolved Patient still with criteria to include leukocytosis, tachycardia, mild rhabdomyolysis secondary to debility, dehydration, Patient continued on IV fluids Lactic acidosis has already returned to normal. Urinalysis was clear, influenza testing was negative Blood cultures are negative for 2 day Chest x-rays without any signs of infiltrate or pneumonia Patient was started on empirical antibiotics include vancomycin and Zosyn in the emergency department Serial cardiac enzymes, serial EKGs were performed and ruled out any acute coronary event Echocardiogram indicates ejection fraction 50-55%. Normal left ventricular size and function. consult physical therapy for evaluation, who indicates that the patient will require PT at rehabilitation consult case management for placement to rehabilitation facility Rhabdomyolysis, mild, resolved Continue IV fluid Continue monitor CPK Leukocytosis, resolved Could be reactive and or concentration Monitor CBC Azotemia, improved Likely secondary to dehydration Continue IV fluids monitor renal function Electrolyte abnormalities Hyponatremia, hypokalemia Continue monitor and replete as needed Diabetes Hemoglobin A1c 6.3, with multiple readings of blood glucose greater than 160 Continue Accu-Cheks with sliding scale insulin Consulted special educator, dietitian Discussed the case with special educator, recommending lifestyle modifications with diet and exercise Hypertension, hyperlipidemia Continue home medication Hold parameters for blood pressure medication DVT prevention Subcutaneous heparin Discharge Planning Discharge to rehabilitation facility once arrangements made by case management Activity: Ad rosemarie. Diet: Diabetic diet Medications per medication reconciliation Follow-up with primary medical doctor in one week Aram Doshi Aug 26, 2017 11:08
[2017-08-26] MEDS ORDERED: CEPHALEXIN MONOHYDRATE 250 MG CAP PO PRN (11:15)
[2017-08-26 12:00] VITALS: BP 124/70; PULSE 97; RESP 24; TEMP 97.6; O2SAT 92
== END 2017-08-26 14:15 | DRG 558 ==
LOC: PHED 12:30 → PHEDA 17:19 → PH3B 20:15
PROVIDERS: ADMIT Hospitalist; ATTEND Hospitalist
DX: M62.82 Rhabdomyolysis (principal); E87.2 Acidosis; R65.10 Systemic inflammatory response syndrome (SIRS) of non-infectious origin without acute organ dysfunction; E11.65 Type 2 diabetes mellitus with hyperglycemia; E86.0 Dehydration; E87.1 Hypo-osmolality and hyponatremia; E87.6 Hypokalemia; E78.5 Hyperlipidemia, unspecified; I10 Essential (primary) hypertension; M19.90 Unspecified osteoarthritis, unspecified site; R00.0 Tachycardia, unspecified; G89.29 Other chronic pain; M79.671 Pain in right foot; M79.672 Pain in left foot; Z85.828 Personal history of other malignant neoplasm of skin
CPT/HCPCS: 70450; 71045; 80048; 80053; 81001; 82550; 82552; 82948; 83036; 83605; 83735; 83880; 84132; 84484; 85025; 85610; 85730; 87040; 87804; 93005; 93306; 96361; 96365; J1644; J1815; J2543; J3370; J3480; J7030; J7050